=== PATIENT | male | born 1970 | race Two or more races ===

== ENCOUNTER → 2019-09-13 09:32 | Outpatient (CLI) | payer OTHER | END | disposition home or self-care (01) | LOC: LAB 09:32 | DX: E78.2 Mixed hyperlipidemia (principal); R10.84 Generalized abdominal pain; R19.5 Other fecal abnormalities ==

== ENCOUNTER 2019-09-14 07:42 | Outpatient (CLI) | payer OTHER | END 2019-09-14 07:43 | disposition home or self-care (01) | LOC: SONOGRAMA 07:42 | DX: R10.84 Generalized abdominal pain (principal); R19.5 Other fecal abnormalities ==

== ENCOUNTER 2019-09-14 09:45 | Outpatient (CLI) | payer OTHER | END 2019-09-14 10:01 | disposition home or self-care (01) | LOC: LAB 09:45 | DX: R94.5 Abnormal results of liver function studies (principal); R10.10 Upper abdominal pain, unspecified ==